=== PATIENT | male | born 1970 | race Two or more races ===

== ENCOUNTER 2021-06-29 20:17 | Emergency (ER) | payer MEDICAID ==
[~2021-06-29] VITALS: Ht 167.6 cm; Wt 68.0 kg
--- NOTE | 2021-06-29 20:39 | NUR ---
BIBRA 77 FROM IN N OUT C/O NECK AND RIGHT CHEST PAIN, PT IS MUTE ABLE TO WRITE TO COMMUNICATE, PATIENT IS A/O, RR EVEN AND UNLABORED, NO SOB NOTED. PATIENT CONNECTED TO MONITORS.
[2021-06-29 21:23] LABS: BASOPHILS # (AUTO) 0.1 K/uL (0.0-0.2); BASOPHILS % (AUTO) 0.8 % (0.0-2.0); EOSINOPHILS % (AUTO) 2.1 % (0.0-6.0); HEMATOCRIT 33 % (39-51); LYMPHOCYTES % (AUTO) 22.7 % (20.0-44.0); MEAN CORPUSCULAR HGB CONC 34 g/dl (31.0-36.0); MEAN CORPUSCULAR VOLUME 83 fL (80-96); MONOCYTES % (AUTO) 10.7 % (2.0-12.0); NEUTROPHILS # (AUTO) 5.7 K/uL (1.8-8.9); NEUTROPHILS % (AUTO) 63.7 % (43.0-81.0); PLATELET COUNT (AUTO) 396 K/uL (150-450); RED BLOOD CELL COUNT(AUTO) 3.93 MIL/uL (4.5-6.0)
[2021-06-29 21:45] LABS: CARBON DIOXIDE 30 mmol/L (21-32); CHLORIDE 106 mmol/L (98-107); CREATININE 1.2 mg/dL (0.6-1.3); GLUCOSE 93 mg/dL (74-106); POTASSIUM 3.8 mmol/L (3.5-5.1); SODIUM SERUM 139 mmol/L (136-145); UREA NITROGEN, BLOOD 27 mg/dL (7-18)
--- NOTE | 2021-06-29 22:52 | NUR ---
Janet oviedo in [facility] - 06/29/21 at 2325 by POLLY PT SEEN BY DR. HERNANDEZ
[2021-06-29] MEDS ORDERED: IOHEXOL-350 100 ML VIAL IV ONE (23:08)
[2021-06-30] VITALS: BP 129/68
--- NOTE | 2021-06-30 02:21 | NUR ---
Patient discharged to home in stable condition. Written and verbal after care instructions given. Patient verbalizes understanding of instruction.IV removed. Catheter intact and site benign. Pressure and 4x4 applied to site. No bleeding noted.
== END 2021-06-30 02:25 | disposition home or self-care (01) ==
LOC: ER 20:26 → EDBD 20:26 → ER 06-30 02:25
DX: R07.89 Other chest pain (principal); Z60.2 Problems related to living alone
CPT/HCPCS: 36415; 71045; 71275; 80048; 83880; 84484 ×2; 85025; 85378; 93005; 99285; Q9967

== ENCOUNTER 2021-12-13 15:15 | Emergency (ER) | payer MEDICAID ==
[~2021-12-13] VITALS: Ht 165.1 cm; Wt 72.6 kg
[2021-12-13 15:55] LABS: BASOPHILS # (AUTO) 0.1 K/uL (0.0-0.2); HEMATOCRIT 36 % (39-51); HEMOGLOBIN 12.1 g/dL (13.5-17.5); LYMPHOCYTES # (AUTO) 1.6 K/uL (0.8-4.8); LYMPHOCYTES % (AUTO) 24.9 % (20.0-44.0); MEAN CORPUSCULAR HGB CONC 34 g/dl (31.0-36.0); MEAN CORPUSCULAR VOLUME 80 fL (80-96); MONOCYTES # (AUTO) 0.8 K/uL (0.1-1.30); MONOCYTES % (AUTO) 11.8 % (2.0-12.0); NEUTROPHILS # (AUTO) 3.9 K/uL (1.8-8.9); NEUTROPHILS % (AUTO) 60.3 % (43.0-81.0); PLATELET COUNT (AUTO) 392 K/uL (150-450); RED BLOOD CELL COUNT(AUTO) 4.47 MIL/uL (4.5-6.0); WHITE BLOOD COUNT (AUTO) 6.4 K/uL (4.3-11.0)
--- NOTE | 2021-12-13 16:00 | NUR ---
Pt able to drink juice w/o any issues. NO acute changes
[2021-12-13 16:08] LABS: CALCIUM, SERUM 8.5 mg/dL (8.5-10.1); CARBON DIOXIDE 30 mmol/L (21-32); CHLORIDE 101 mmol/L (98-107); CREATININE 1.2 mg/dL (0.6-1.3); GLUCOSE 85 mg/dL (74-106); POTASSIUM 3.2 mmol/L (3.5-5.1); SODIUM SERUM 134 mmol/L (136-145); UREA NITROGEN, BLOOD 14 mg/dL (7-18)
[2021-12-13 16:20] LABS: ALANINE AMINOTRANSFERASE 21 U/L (12-78); ALBUMIN 3.5 g/dL (3.4-5.0); ALKALINE PHOSPHATASE 84 U/L (46-116); ASPARTATE AMINOTRANSFERASE 17 U/L (15-37); BILIRUBIN,DIRECT 0.1 mg/dL (0.0-0.2); BILIRUBIN,TOTAL 0.3 mg/dL (0.2-1.0); TOTAL PROTEIN, SERUM 7.4 g/dL (6.4-8.2)
--- NOTE | 2021-12-13 16:54 | NUR ---
Voiding freely. status quo
--- NOTE | 2021-12-13 17:30 | NUR ---
Patient discharged to home in stable condition. Written and verbal after care instructions given. Patient verbalizes understanding of instruction.
[2021-12-13 17:32] VITALS: BP 145/87
== END 2021-12-13 17:34 | disposition home or self-care (01) ==
LOC: ER 15:19
DX: Z76.5 Malingerer [conscious simulation] (principal); Z59.00 Homelessness unspecified
CPT/HCPCS: 36415; 71045-TC; 80048-TC; 80076-TC; 82962-TC; 83880; 84484-TC; 85025-TC; 85730-TC; G0480

== ENCOUNTER 2022-03-25 11:54 | Emergency (ER) | payer MEDICAID ==
[~2022-03-25] VITALS: Ht 167.6 cm; Wt 78.0 kg
--- NOTE | 2022-03-25 12:07 | NUR ---
DR SCHULER AT BEDSIDE FOR EVAL.
--- NOTE | 2022-03-25 12:20 | NUR ---
BUS WASHER AT BEDSIDE FOR BLOOD DRAW.
[2022-03-25 12:29] LABS: BASOPHILS % (AUTO) 0.7 % (0.0-2.0); EOSINOPHILS % (AUTO) 1.9 % (0.0-6.0); HEMATOCRIT 35 % (39-51); HEMOGLOBIN 11.6 g/dL (13.5-17.5); LYMPHOCYTES # (AUTO) 1.1 K/uL (0.8-4.8); LYMPHOCYTES % (AUTO) 15.2 % (20.0-44.0); MEAN CORPUSCULAR HGB CONC 34 g/dl (31.0-36.0); MEAN CORPUSCULAR VOLUME 80 fL (80-96); MONOCYTES # (AUTO) 0.8 K/uL (0.1-1.30); MONOCYTES % (AUTO) 11.8 % (2.0-12.0); NEUTROPHILS % (AUTO) 70.4 % (43.0-81.0); PLATELET COUNT (AUTO) 356 K/uL (150-450); RED BLOOD CELL COUNT(AUTO) 4.34 MIL/uL (4.5-6.0); WHITE BLOOD COUNT (AUTO) 7.1 K/uL (4.3-11.0)
[2022-03-25 12:56] LABS: ALANINE AMINOTRANSFERASE 25 U/L (12-78); ALBUMIN 3.7 g/dL (3.4-5.0); ALCOHOL, BLOOD < 3 mg/dL (0-0); ALKALINE PHOSPHATASE 85 U/L (46-116); ASPARTATE AMINOTRANSFERASE 21 U/L (15-37); BILIRUBIN,DIRECT 0.1 mg/dL (0.0-0.2); BILIRUBIN,TOTAL 0.3 mg/dL (0.2-1.0); CARBON DIOXIDE 28 mmol/L (21-32); CHLORIDE 103 mmol/L (98-107); CREATININE 1.1 mg/dL (0.6-1.3); GLUCOSE 107 mg/dL (74-106); POTASSIUM 3.4 mmol/L (3.5-5.1); SODIUM SERUM 137 mmol/L (136-145); TOTAL PROTEIN, SERUM 7.7 g/dL (6.4-8.2); UREA NITROGEN, BLOOD 23 mg/dL (7-18)
[2022-03-25 12:57] LABS: ACETAMINOPHEN < 10 ug/ml (10-30)
--- NOTE | 2022-03-25 13:45 | NUR ---
PATIENT PROVIDED WITH MEAL TRAY.
--- NOTE | 2022-03-25 15:18 | NUR ---
PT IS SLEEPING, EASILY AROUSABLE. STABLE VITALS. WILL CONTINUE TO MONITOR.
--- NOTE | 2022-03-25 16:15 | NUR ---
AIXA OSORIO AT BEDSIDE FOR EVAL.
--- NOTE | 2022-03-25 16:32 | NUR ---
SW met with pt. at bedside for DC PLANNING. The pt. is alert & oriented, disheveled and makes good eye contact. The pt. appears to be mute, SW attempted to communicate with pt. via writing however, handwriting is not legible. SW provided TAP card and bus direction to the [facility] : [facility] [[address] [facility] SW also provided pt. with homeless resources and pt. accepted them. Pt. refused to sign homeless waiver and it was placed in the pt.'s chart. SW discussed case with , Sharda Mitchell. homeless resources: Year-round shelters: [facility] [place] [address] [place], [place] [phone] ; [facility] [place] [address] [place] [address]; [facility] [id number] [facility]. [facility] [address] Hygiene: [facility]: [address] [facility]. [place] ; [facility] [address] [facility] ; [facility] [address] [facility] [place] . Food Resources: [place] [facility] at [facility]- [address] [facility]; Meet Each Need with Dignity ([facility]) [address] [facility]; [facility] 7945 [facility]; [facility] [address] [facility]. Mental Health resources provided: [facility] [address] [place] [address] ; [facility] [address] [facility] [address], [place] [address] ; Janeth Modi [facility] Mental [facility] [address] [place] [address] ; [facility] [address] [place], [place] [id number] Healthcare Clinics: [facility] [address] [facility], [address] [place]. [place] ; [facility] [address] [facility] [address] [place] [address]; [facility] [place] [address] [facility] [address] [phone]) [phone] Counseling--Outpatient [facility] [address] [facility], [place] [address] (Specializes in in-depth psychotherapy for emotional distress: anxiety, depression, interpersonal conflicts, life transitions, childhood abuse) [facility] [address] [place] [address] (Assist with solving problem marital difficulties, separation & divorce, aging parents, & grief, chronic & terminal illness) [facility] [address] [place] [address] (Deal with loss & grief, anxiety, marital difficulties) Homebound/Mental Health Services [address] [facility] [address] [place] [address] (Provide in-home mental services to people who are incapable of leaving their homes) [facility] Senior Service/Resource Center [address] [facility] [place] [address] [facility] [address] [place], [place] [address] PSYCHIATRIC OUTPATIENT SERVICES [facility] Partial Hospitalization and Intensive Outpatient Program (Managed Care and [place] Only)[address] [place]. [facility] [phone] [facility] Partial Hospitalization and Outpatient Sbavyks[address] [facility] [address] [place], [place] [phone] [facility] [id number] [facility] [address] [place], [place] [phone] [facility] Partial Hospitalization and Outpatient Hvezpot33541 [place], [phone] Substance Abuse resources provided included: [facility] Substance Abuse Self-Helpline ([facility]) ; [facility] [address] [facility]. [place] [address] ; [facility] [address] [facility] [address] ; [facility] [address] [place] [place] [facility]St[facility]. [place] [phone] ; [facility] [address] [facility] [phone] ; [facility] [address] Mate[facility] [address] ; Alycia [facility] 900 [facility] [phone] ; [facility] Substance Abuse Helpline([facility])-[facility] ; [facility] ; [facility]; [facility]; [facility] [place]; [facility] Mateusz Armstrong; [facility] [place]; [facility] [place]; [facility] [place]; [facility]'s [employer] [place]; Alcoholics Anonymous -[facility]; Bo-Lhcb-Lrrjxkl ; Marijuana Anonymous -[facility]; Narcotics Anonymous www.na.org;
--- NOTE | 2022-03-25 16:54 | NUR ---
PT SAMBULATORY WITH STEADY GAIT, WANTS TO LEAVE THE EMERGENCY DEPARTMENT. PT WAS SEEN BY SUPERVISOR PIPELINE MAINTENANCE, HOMELESS WAIVER SIGNED AND WAS GIVEN BUS PASS. STABLE VITALS. DR MARTINEZ MADE AWARE. D/C IN STABLE CONDITION.
[2022-03-25 16:56] VITALS: BP 153/97
== END 2022-03-25 16:57 | disposition home or self-care (01) ==
LOC: ER 11:54
DX: R53.1 Weakness (principal); R53.83 Other fatigue; R41.82 Altered mental status, unspecified; Z59.00 Homelessness unspecified
CPT/HCPCS: 36415; 70450-TC; 80048-TC; 80076-TC; 85025-TC; G0480